=== PATIENT | female | born 1955 | race Caucasian/White ===

== ENCOUNTER 2017-05-10 08:42 | Outpatient (CLI) | payer BC | END 2017-05-10 08:43 | disposition home or self-care (01) | LOC: BICMAMMO 08:42 | PROVIDERS: ATTEND Internal Medicine Hematology & Oncology | DX: M85.80 Other specified disorders of bone density and structure, unspecified site (principal); C50.919 Malignant neoplasm of unspecified site of unspecified female breast; M85.88 Other specified disorders of bone density and structure, other site | CPT/HCPCS: 77080 ==

== ENCOUNTER 2018-05-12 09:48 | Outpatient (CLI) | payer BC ==
--- NOTE | 2018-05-12 12:24 | BD ---
BONE DENSITOMETRY USING DEXA: Date: 05/12/18 INDICATION: Osteoporosis. Postmenopausal bone mineral screening evaluation. COMPARISON: 05/10/17 DEXA scan. FINDINGS: Lumbar Spine: BMD (g/cm2) L1 0.85 T-Score: -1.2 L2 0.89 T-Score: -1.2 L3 0.81 T-Score: -2.5 L4 0.47 T-Score: -2.5 L1-L4 0.83 T-Score: -1.9 Femoral Neck: 0.61 T-Score: -2.1 Total Femur: 0.69 T-Score: -2.1 IMPRESSION: T-scores indicate osteopenia, placing patient at increased risk for fracture. Demineralization has sl ightly progressed from prior exam. POS: BECKY
== END 2018-05-12 09:49 | disposition home or self-care (01) ==
LOC: BICMAMMO 09:48
PROVIDERS: ATTEND Internal Medicine Hematology & Oncology
DX: M81.0 Age-related osteoporosis without current pathological fracture (principal); M85.859 Other specified disorders of bone density and structure, unspecified thigh
CPT/HCPCS: 77080

== ENCOUNTER 2019-05-14 10:01 | Outpatient (CLI) | payer BC ==
--- NOTE | 2019-05-14 11:29 | BD ---
BONE DENSITOMETRY USING DEXA: Date: 05/14/2019 HISTORY: Postmenopausal screening for osteoporosis. Age-related osteoporosis without current pathologic fractu re. FINDINGS: Lumbar Spine: BMD (g/cm2) L1 0.855 T-Score: -1.2 Z-Score: 0.1 L2 0.876 T-Score: -1.4 Z-Score: 0.1 L3 0.794 T-Score: -2.6 Z-Score: -1.1 L4 0.779 T-Score: -2.6 Z-Score: -0.9 L1-L4 0.823 T-Score: -2.0 Z-Score: -0.5 Femoral Neck: 0.625 T-Score: -2.0 Z-Score: -0.7 Total Femur: 0.677 T-Score: -2.2 Z-Score: -1.1 There has been interval reduction of 1.2% in the bone mineral density of the lumbar spine and interva l reduction of 2% in the bone mineral density of the proximal femur since 05/12/2018. IMPRESSION: Osteopenia. POS: BECKY
== END 2019-05-14 10:02 | disposition home or self-care (01) ==
LOC: BICMAMMO 10:01
PROVIDERS: ATTEND Internal Medicine Hematology & Oncology
DX: M81.0 Age-related osteoporosis without current pathological fracture (principal); Z85.3 Personal history of malignant neoplasm of breast; M85.89 Other specified disorders of bone density and structure, multiple sites
CPT/HCPCS: 77080

== ENCOUNTER 2020-05-11 13:30 | Outpatient (CLI) | payer BC | END 2020-05-11 13:31 | disposition home or self-care (01) | LOC: BICMAMMO 13:30 | PROVIDERS: ATTEND Internal Medicine Hematology & Oncology | DX: M85.89 Other specified disorders of bone density and structure, multiple sites (principal) | CPT/HCPCS: 77080 ==